=== PATIENT | male | born 1955 | race Caucasian/White ===

== ENCOUNTER 2016-11-30 07:21 | Day surgery (SDC) | payer BC ==
[2016-11-30] MEDS ORDERED: BICITRA 30 ML CUP PO ONE (07:22)
[2016-11-30] MEDS ORDERED: CEFAZOLIN 2 GM-D5W BAG** 50 ML IV ONE (07:24)
[2016-11-30] MEDS ORDERED: BICITRA 30 ML CUP ONE (07:24)
[2016-11-30] MEDS ORDERED: Lactated Ringers 1,000 ML IV ONE (07:24)
[2016-11-30] MEDS ORDERED: Pepcid 20 MG VIAL IV ONE ×2 (07:24→08:09)
[2016-11-30] MEDS ORDERED: Lactated Ringers 1,000 ML IV SCH (07:30)
[2016-11-30] MEDS ORDERED: CEFAZOLIN 2 GM-D5W BAG** 50 ML IV SCH (07:30)
[2016-11-30] MEDS ORDERED: DILAUDID 2 MG INJECTION ONE (10:14)
--- NOTE | 2016-11-30 10:35 | XRAY ---
Indication: Surgery. Intraoperative fluoroscopy was provided for 27 seconds. 2 digital spot lateral views of the heel demonstrates metallic localizer projecting over a plantar heel spur. Correlate with intraoperative findings/report.
--- NOTE | 2016-11-30 10:44 | OP ---
SURGERY DATE: 11/30/2016912 PREOPERATIVE DIAGNOSES: 1) Right plantar fasciitis chronic. 2) Large calcaneal bone spur relative to the plantar fasciitis right foot. 3) X-ray per surgeon. 4) Short leg cast. POSTOPERATIVE DIAGNOSES: 1) Right plantar fasciitis chronic. 2) Large calcaneal bone spur relative to the plantar fasciitis right foot. 3) X-ray per surgeon. 4) Short leg cast. PROCEDURE: Plantar fascia release and bone spur removal. SURGEON: Yonatan Montiel D.O. SALES ANALYST: None. ANESTHESIA: General per GLOBAL LOGISTICS ANALYST. ESTIMATED BLOOD LOSS: Minimal. DESCRIPTION OF PROCEDURE: The patient is taken to the operative suite and placed in supine position, given a general anesthetic. Tourniquet applied, inflated, exsanguinated 350 for about a half an hour. Sterile prep and drape done. Incision made over the base of the foot. He had a transverse incision in the margin between glabrous and normal skin of the heel through skin and subcutaneous fascia, deep fascia. The plantar fascia was then released with heavy scissors and release of this heavy fascial thickening was performed directly and then under x-ray guidance two views were ascertain the position of the plantar spur and this was removed with the jaws of a large rongeur and then a rasp was used to finish this off. Irrigation of the wound was done. Prolene sutures placed and then short leg cast as the tourniquet was disinflated. The patient was sent on to the recovery room in satisfactory condition.
[2016-11-30 12:39] VITALS: PULSE 69; O2SAT 98
[2016-11-30 13:12] VITALS: BP 130/78
[2016-11-30] MEDS ORDERED: SUBLIMAZE 100 MCG/2 ML IV ONE (16:21)
[2016-11-30] MEDS ORDERED: Versed 2 MG/2 ML Injection IV ONE (16:21)
[2016-11-30] MEDS ORDERED: LIDOCAINE HCL 2% 100 MG/5 ML IJ ONE (16:21)
[2016-11-30] MEDS ORDERED: TORAdol 30 mg Injection IJ ONE (16:21)
[2016-11-30] MEDS ORDERED: DILAUDID 2 MG INJECTION IV ONE (16:21)
[2016-11-30] MEDS ORDERED: Decadron 4 MG INJ IV ONE (16:21)
[2016-11-30] MEDS ORDERED: DIPRIVAN 200 MG/20 ML IV ONE (16:21)
[2016-11-30] MEDS ORDERED: Zofran 4 MG/2 ML VIAL IV ONE (16:21)
--- NOTE | 2016-12-01 08:54 | XRAY ---
27 seconds of fluoroscopy was used in surgery for a right heel spur removal.
== END 2016-11-30 12:05 | disposition home or self-care (01) ==
LOC: SDC 07:21
PROVIDERS: ATTEND Orthopaedic Surgery
PROC: 0JNQ0ZZ Release Right Foot Subcutaneous Tissue and Fascia, Open Approach (ICD-10-PCS; principal; 2016-11-30)
DX: M72.2 Plantar fascial fibromatosis (principal); M77.31 Calcaneal spur, right foot
CPT/HCPCS: 01480; 73650; 76000; J0690; J1100; J1170; J1885; J2250; J2405; J2704; J3010